=== PATIENT | female | born 2000 | race African-American/Black ===

== ENCOUNTER 2018-06-29 10:39 | Inpatient (IN) | payer MEDICAID | END 2018-06-30 18:00 | disposition home or self-care (01) | LOC: ER 10:39 → OVERFLOW 12:55 → WEST WING 22:45 → TELE-WESTW 22:53 | DX: E10.10 Type 1 diabetes mellitus with ketoacidosis without coma (principal); D72.829 Elevated white blood cell count, unspecified ==

== ENCOUNTER 2021-05-16 18:26 | Emergency (ER) | payer MEDICAID ==
[~2021-05-16] VITALS: Ht 160 cm; Wt 61.2 kg
[~2021-05-16 18:26] MED LIST: INSU100I2 SC; INSU1INJ19 SC
[2021-05-16 23:00] VITALS: BP 142/88
== END 2021-05-16 23:07 | disposition home or self-care (01) ==
LOC: ER 18:27
DX: J03.80 Acute tonsillitis due to other specified organisms (principal); B96.89 Other specified bacterial agents as the cause of diseases classified elsewhere; R53.83 Other fatigue; R09.81 Nasal congestion; R05.9 Cough, unspecified; E11.9 Type 2 diabetes mellitus without complications; Z79.4 Long term (current) use of insulin